=== PATIENT | male | born 1945 | race Caucasian/White ===

== ENCOUNTER 2018-01-24 13:35 | Outpatient (CLI) | payer MEDICARE | END 2018-01-24 13:36 | disposition home or self-care (01) | LOC: BICMRI 13:35 | PROVIDERS: ATTEND Psychiatry & Neurology Neurology | DX: I67.82 Cerebral ischemia (principal); G31.89 Other specified degenerative diseases of nervous system | CPT/HCPCS: 70553; 82565 ==

== ENCOUNTER 2019-05-10 20:30 | Outpatient (CLI) | payer MEDICARE | END 2019-05-10 20:31 | disposition home or self-care (01) | LOC: SLEEPLAB 20:30 | PROVIDERS: ATTEND Allergy & Immunology | DX: G47.33 Obstructive sleep apnea (adult) (pediatric) (principal) | CPT/HCPCS: 95811 ==

== ENCOUNTER 2021-03-30 11:21 | Outpatient (CLI) | payer MEDICARE | END 2021-03-30 11:22 | disposition home or self-care (01) | LOC: CT 11:21 | PROVIDERS: ATTEND Family Medicine | DX: K21.9 Gastro-esophageal reflux disease without esophagitis (principal); M54.5 Low back pain; M19.90 Unspecified osteoarthritis, unspecified site; R68.81 Early satiety; R27.0 Ataxia, unspecified; R07.9 Chest pain, unspecified; R05 Cough; M47.816 Spondylosis without myelopathy or radiculopathy, lumbar region; K44.9 Diaphragmatic hernia without obstruction or gangrene | CPT/HCPCS: 71046; 72131; 74246; Q9963 ==

== ENCOUNTER 2023-03-22 06:15 | Day surgery (SDC) | payer MEDICARE ==
[2023-03-21 11:13] VITALS: BMI 35.2
[2023-03-22] MEDS ORDERED: Levofloxacin 500 mg/D5W 100 ml Premix Bag ONE (07:01)
[2023-03-22] MEDS ORDERED: fentaNYL 50 mcg/mL 1 mL Vial ONE (07:22)
[2023-03-22] MEDS ORDERED: Ondansetron PF 4 MG/2 ML Vial ONE (07:37)
[2023-03-22] MEDS ORDERED: Glycopyrrolate 0.2 MG/ML 5 ML SYRINGE ONE (07:37)
[2023-03-22] MEDS ORDERED: Dexamethasone 20 MG/5 ML VIAL ONE (07:37)
[2023-03-22] MEDS ORDERED: PROPOFOL 200 MG/20 ML VIAL ONE (07:37)
[2023-03-22] MEDS ORDERED: Succinylcholine 200 MG/10 ml SYRINGE FS ONE (07:37)
[2023-03-22] MEDS ORDERED: Lidocaine 1% PF 5 ML VIAL ONE (07:37)
[2023-03-22] MEDS ORDERED: NEOSTIGMINE 3 MG/3 ML SYR 3 MG/3 ML SYRINGE ONE (07:37)
[2023-03-22] MEDS ORDERED: Rocuronium Bromide 10 MG/ML (10ML VIAL) ONE (07:37)
[2023-03-22] MEDS ORDERED: Iopamidol 30 ML ONE (07:49)
== END 2023-03-22 10:57 | disposition home or self-care (01) ==
LOC: SDC 06:15
PROVIDERS: ATTEND Urology
PROC: 0T7D8ZZ Dilation of Urethra, Via Natural or Artificial Opening Endoscopic (ICD-10-PCS; principal; 2023-03-22)
DX: N32.0 Bladder-neck obstruction (principal); N35.919 Unspecified urethral stricture, male, unspecified site; N39.0 Urinary tract infection, site not specified; I10 Essential (primary) hypertension; Z79.899 Other long term (current) drug therapy
CPT/HCPCS: 52281; 74420; 93005; J3010; 93010; J1100; J1956; J2405; J2704; Q9967